=== PATIENT | male | born 1995 | race Two or more races ===

== ENCOUNTER 2018-09-29 17:08 | Emergency (ER) | payer BC ==
[~2018-09-29] VITALS: Ht 170.2 cm; Wt 72.6 kg
[2018-09-29] MEDS ORDERED: DICYCLOMINE 20 MG/2 ML AMPUL. IM ONE ×2 (18:32→18:45)
[2018-09-29] MEDS ORDERED: ONDANSETRON PF 4 MG/2 ML VIAL. ONE (18:32)
[2018-09-29] MEDS ORDERED: IV NORMAL SALINE 1000ML BAG 1,000 ML IV ONE (18:45)
[2018-09-29] MEDS ORDERED: KETOROLAC 30 MG/ML VIAL. IM ONE (18:45)
[2018-09-29] MEDS ORDERED: ONDANSETRON PF 4 MG/2 ML VIAL. IV ONE (18:45)
[2018-09-29 18:51] LABS: BASO % 0 % (0-3); EOS % 0 % (0-3); HEMATOCRIT 42.9 % (39.0-53.0); HEMOGLOBIN 14.4 g/dL (13.0-17.5); LYMPH # 1.2 x10^3/uL (1.0-4.8); LYMPH % 15 % (24-48); MEAN CORPUSCULAR HEMOGLOBIN 30 pg (25-35); MEAN CORPUSCULAR HGB CONC 34 g/dL (31-37); MEAN CORPUSCULAR VOLUME 90 fL (79-100); MONO # 0.4 x10^3/uL (0.0-1.1); MONO % 5 % (0-9); NEUT # 6.5 x10^3uL (1.8-7.7); NEUT % 79 % (31-73); PLATELET COUNT 296 x10^3/uL (140-400); RED BLOOD COUNT 4.79 x10^6/uL (4.30-5.70); RED CELL DISTRIBUTION WIDTH 12.8 % (11.5-14.5); WHITE BLOOD COUNT 8.2 x10^3/uL (4.0-11.0)
[2018-09-29 18:52] LABS: BILIRUBIN,URINE NEGATIVE (NEG); CLARITY,URINE CLEAR; COLOR,URINE YELLOW; NITRITE,URINE NEGATIVE (NEG); PH,URINE 7.5; PROTEIN,URINE NEGATIVE (NEG-TRACE); UROBILINOGEN,URINE 0.2 mg/dL (0.2 mg/dL)
[2018-09-29 18:57] LABS: BACTERIA,URINE 0 /HPF (0-FEW); RBC,URINE 0 /HPF (0-2); SQUAMOUS EPITHELIAL CELL,UR OCC /LPF; WBC,URINE OCC /HPF (0-4)
--- NOTE | 2018-09-29 18:59 | PHYS DOC ---
Past Medical History Past Medical History: No Pertinent History (MILENA AMIN APRN) Past Surgical History: No Surgical History (IMLENA AMIN APRN) Alcohol Use: Occasionally Drug Use: None (MILENA AMIN APRN) Adult General Chief Complaint Chief Complaint: ABDOMINAL PAIN HPI HPI 23-year-old male presents to ER with complaints of mid abdominal pain. Patient reports today around 11:00 he was eating lunch which was released spicy and following he had sudden onset of mid abdominal pain followed by 3 episodes of vomiting. Patient states since he is continued to have abdominal pain although symptoms have improved. At this time he still feels slightly nauseous. Patient denies any diarrhea episodes. He denies fever, sore throat, or cold/flu like symptoms. He reports he has urinated since onset of symptoms and did have slight dysuria denies hematuria or incontinence. (MILENA AMIN APRN) Review of Systems Review of Systems Constitutional: Denies fever or chills [] Eyes: Denies change in visual acuity, redness, or eye pain [] HENT: Denies nasal congestion or sore throat [] Respiratory: Denies cough or shortness of breath [] Cardiovascular: Denies CP GI: Denies bloody stools or diarrhea. Reports mid abd pain with N/V- 3 episodes : Denies hematuria. Reports dysuria Musculoskeletal: Denies back/neck pain or joint pain [] Integument: Denies rash or skin lesions [] Neurologic: Denies headache, focal weakness or sensory changes [] All other systems were reviewed and found to be within normal limits, except as documented in this note. (MILENA AMIN APRN) Current Medications Current Medications Current Medications Medications (Trade) Dose Ordered Sig/Santino Start Time Stop Time Status Last Admin Dose Admin Dicyclomine HCl (Bentyl) 20 mg 1X ONCE 09/29/18 18:45 09/29/18 18:46 DC 09/29/18 18:39 20 MG Ketorolac Tromethamine (Toradol 30mg Vial) 30 mg 1X ONCE 09/29/18 18:45 09/29/18 18:46 Cancel Ondansetron HCl (Zofran) 4 mg 1X ONCE 09/29/18 18:45 09/29/18 18:46 DC 09/29/18 18:39 4 MG Sodium Chloride 1,000 ml @ 1,000 mls/hr 1X ONCE 09/29/18 18:45 09/29/18 19:44 DC 09/29/18 18:40 1,000 MLS/HR (MOHINI RICHMOND DO) Allergies Allergies Allergies Coded Allergies Type Severity Reaction Last Updated Verified No Known Drug Allergies 09/29/18 No (MOHINI RICHMOND DO) Physical Exam Physical Exam Constitutional: Well developed, well nourished, no acute distress, non-toxic appearance. [] HENT: Normocephalic, atraumatic, oropharynx moist, nose normal. [] Eyes: Pupils equal, conjunctiva normal, no discharge. [] Neck: Normal range of motion, no tenderness, supple, no stridor. [] Cardiovascular:Heart rate regular rhythm, no murmur [] Lungs & Thorax: Bilateral breath sounds clear to auscultation- resp. equal/nonlabored Abdomen: Bowel sounds normal, soft-no distention or rigidity, diffuse tenderness in mid abdomen no rebound tenderness, no masses, no pulsatile masses. [] Skin: Warm, dry, no erythema, no rash. [] Back: No tenderness, no CVA tenderness. [] Extremities: No tenderness, no cyanosis, no clubbing, ROM intact, no edema. [] Neurologic: Alert and oriented X 3, normal motor function, normal sensory function, no focal deficits noted. [] Psychologic: Affect normal, judgement normal, mood normal. [] (REFFITT,MILENA Moul[place] APRN) Current Patient Data Vital Signs Vital Signs Date Time Temp Pulse Resp B/P (MAP) Pulse Ox O2 Delivery O2 Flow Rate FiO2 09/29/18 19:21 72 125/73 (90) 99 Room Air 09/29/18 17:25 98.3 16 98.3 (MOHINI RICHMOND DO) Lab Values Laboratory Tests Test 09/29/18 17:15 09/29/18 17:29 Urine Collection Type Unknown Urine Color Yellow Urine Clarity Clear Urine pH 7.5 Urine Specific Clarence 1.025 Urine Protein Negative mg/dL (NEG-TRACE) Urine Glucose (UA) Negative mg/dL (NEG) Urine Ketones (Stick) Negative mg/dL (NEG) Urine Blood Negative (NEG) Urine Nitrite Negative (NEG) Urine Bilirubin Negative (NEG) Urine Urobilinogen Dipstick 0.2 mg/dL (0.2 mg/dL) Urine Leukocyte Esterase Negative (NEG) Urine RBC 0 /HPF (0-2) Urine WBC Occ /HPF (0-4) Urine Squamous Epithelial Cells Occ /LPF Urine Bacteria 0 /HPF (0-FEW) Urine Mucus Slight /LPF White Blood Count 8.2 x10^3/uL (4.0-11.0) Red Blood Count 4.79 x10^6/uL (4.30-5.70) Hemoglobin 14.4 g/dL (13.0-17.5) Hematocrit 42.9 % (39.0-53.0) Mean Corpuscular Volume 90 fL (79-100) Mean Corpuscular Hemoglobin 30 pg (25-35) Mean Corpuscular Hemoglobin Concent 34 g/dL (31-37) Red Cell Distribution Width 12.8 % (11.5-14.5) Platelet Count 296 x10^3/uL (140-400) Neutrophils (%) (Auto) 79 % (31-73) H Lymphocytes (%) (Auto) 15 % (24-48) L Monocytes (%) (Auto) 5 % (0-9) Eosinophils (%) (Auto) 0 % (0-3) Basophils (%) (Auto) 0 % (0-3) Neutrophils # (Auto) 6.5 x10^3uL (1.8-7.7) Lymphocytes # (Auto) 1.2 x10^3/uL (1.0-4.8) Monocytes # (Auto) 0.4 x10^3/uL (0.0-1.1) Eosinophils # (Auto) 0.0 x10^3/uL (0.0-0.7) Basophils # (Auto) 0.0 x10^3/uL (0.0-0.2) Sodium Level 137 mmol/L (136-145) Potassium Level 4.0 mmol/L (3.5-5.1) Chloride Level 100 mmol/L (98-107) Carbon Dioxide Level 27 mmol/L (21-32) Anion Gap 10 (6-14) Blood Urea Nitrogen 19 mg/dL (8-26) Creatinine 1.0 mg/dL (0.7-1.3) Estimated GFR (Cockcroft-Gault) 91.8 BUN/Creatinine Ratio 19 (6-20) Glucose Level 105 mg/dL (70-99) H Calcium Level 9.5 mg/dL (8.5-10.1) Total Bilirubin 0.4 mg/dL (0.2-1.0) Aspartate Amino Transferase (AST) 26 U/L (15-37) Alanine Aminotransferase (ALT) 42 U/L (16-63) Alkaline Phosphatase 79 U/L (46-116) Total Protein 8.0 g/dL (6.4-8.2) Albumin 4.4 g/dL (3.4-5.0) Albumin/Globulin Ratio 1.2 (1.0-1.7) Lipase 101 U/L (73-393) Laboratory Tests 09/29/18 17:29 Laboratory Tests 09/29/18 17:29 (MOHINI RICHMOND DO) EKG EKG [] (MILENA AMIN APRN) Radiology/Procedures Radiology/Procedures [] (MILENA AMIN APRN) Course & Med Decision Making Course & Med Decision Making Pertinent Labs reviewed. (See chart for details) 193: Pt was evaluated in the ER for complaints of mid abdominal pain and nausea and vomiting. Patient had labs obtained which were unremarkable. IV fluids and dose of Zofran and dicyclomine IM was provided. At this time patient is denying any abdominal pain or nausea. He is nontoxic in appearance and in no distress. Test results were discussed with patient and girlfriend who is at bedside. With improved symptoms plans were for home discharge. Patient had reported initially that he has had other episodes where he eats spicy foods and it triggers similar episodes. Patient advised to avoid spicy foods. Discussed [id number] options he could use if he had any in occurring symptoms including Maalox or milk. Education provided on signs and symptoms to return to ER for and discharge instructions were discussed. (MILENA AMIN APRN) Dragon Disclaimer Dragon Disclaimer This electronic medical record was generated, in whole or in part, using a voice recognition dictation system. (MILENA AMIN APRN) Departure Departure Impression: Primary Impression: Abdominal pain Disposition: 01 HOME, SELF-CARE Condition: STABLE Referrals: UNKNOWN PCP NAME (PCP) AYUSH BANGURA MD Patient Instructions: Abdominal Pain, Nausea and Vomiting Additional Instructions: Avoid spicy foods. Eat a bland diet and drink plenty of fluids. If symptoms reoccur you can try [id number] Maalox or similar type medications as directed on container. If you continue to have issues you should follow-up with your primary care physician and/or a gastrointestinal (GI) doctor. Attending Signature Attending Signature I have reviewed the PA/WEIGHT TESTER's note and plan of care. I was available for consul tation as needed at all times during the patient's visit in the emergency department. I agree with the clinical impression, plan and disposition. (MOHINI RICHMOND DO) MILENA AMIN APRN Sep 29, 2018 18:59 MOHINI RICHMOND DO Oct 02, 2018 21:39
[2018-09-29 19:04] LABS: CALCIUM 9.5 mg/dL (8.5-10.1); GFR 91.8
[2018-09-29 19:10] LABS: ALBUMIN 4.4 g/dL (3.4-5.0); ALBUMIN/GLOBULIN RATIO 1.2 (1.0-1.7); TOTAL BILIRUBIN 0.4 mg/dL (0.2-1.0)
[2018-09-29 19:21] VITALS: BP 125/73
== END 2018-09-29 19:55 | disposition home or self-care (01) ==
LOC: ER 17:08
DX: R10.84 Generalized abdominal pain (principal); R11.2 Nausea with vomiting, unspecified
CPT/HCPCS: 36415; 80053; 81001; 83690; 85025; 96361; 96372; 96374; 99284; J0500; J2405; J7030